=== PATIENT | female | born 1995 | race Two or more races ===

== ENCOUNTER 2019-02-18 15:24 | Emergency (ER) | payer SELFPAY ==
[~2019-02-18] VITALS: Ht 160 cm; Wt 49.9 kg
[2019-02-18] MEDS ORDERED: ACETAMINOPHEN/CODEINE 300-30 MG TABLET ONE (15:59)
[2019-02-18] MEDS ORDERED: ACETAMINOPHEN/CODEINE 300-30 MG TABLET PO ONE (16:00)
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
[2019-02-18 16:04] LABS: *URINE HCG, QUAL NEGATIVE (NEGATIVE)
--- NOTE | 2019-02-18 16:10 | NUR ---
Patient out of unit for ct scan.
[2019-02-18 16:39] VITALS: BP 107/52
--- NOTE | 2019-02-18 16:40 | NUR ---
Discharge instructions given along with prescription. Patient is being discharged at this time.
== END 2019-02-18 16:46 | disposition home or self-care (01) ==
LOC: ER 15:24
DX: S16.1XXA Strain of muscle, fascia and tendon at neck level, initial encounter (principal); S09.90XA Unspecified injury of head, initial encounter; V89.2XXA Person injured in unspecified motor-vehicle accident, traffic, initial encounter; Y93.89 Activity, other specified; Y92.410 Unspecified street and highway as the place of occurrence of the external cause; Y99.8 Other external cause status
CPT/HCPCS: 70450; 84703; A4663